=== PATIENT | female | born 1980 | race Two or more races ===

== ENCOUNTER 2020-03-25 16:53 | Emergency (ER) | payer OTHER ==
[~2020-03-25] VITALS: Ht 160 cm; Wt 68.0 kg
--- NOTE | 2020-03-25 17:15 | NUR ---
PT CAME TO ER WITH C/O RIGHT LOWER LEG NUMBNESS X3 DAYS. PT ABLE TO MOVE EXTREMITY. NO C.O PAIN. NO SWELLING. NO DISCOLORATIONS. NO SIGNS OF TRAUMA. AWAITING FOR MD MANCUSO
--- NOTE | 2020-03-25 17:21 | NUR ---
PA AT BEDSIDE FOR EVAL
[2020-03-25 18:21] VITALS: BP 112/67
== END 2020-03-25 18:22 | disposition home or self-care (01) ==
LOC: EDSEX 16:53 → ER 16:53
DX: R20.2 Paresthesia of skin (principal); Z60.2 Problems related to living alone
CPT/HCPCS: 82962-TC; 93971-TC